=== PATIENT | female | born 1945 | race American Indian/Alaskan Native ===

== ENCOUNTER 2017-06-16 10:32 | Inpatient (IN) | payer MEDICARE, OTHER ==
--- NOTE | 2017-06-16 11:40 | ED PDOC ---
Arrival/HPI - General Chief Complaint: Dizziness/Lightheaded Time Seen by Provider: 06/16/17 11:04 Historian: Patient - History of Present Illness Narrative History of Present Illness (Text): 06/16/17 11:37 Ivy Holland is a 72 year old female, whose past medical history includes Hypertension, ESRD on dialysis, presents to the Emergency department complaining of dizziness, lightheadedness and difficulty speaking since she woke up at 6:30am today. Patient also informs feeling unsteady on her feet while walking, with right sided headache. She states she was advised to come to the ER by her physician prior to arrival, she came by car instead of taking ambulance. Time/Duration: 1-3 hours Symptom Onset: Gradual Symptom Course: Unchanged Activities at Onset: Light Context: Home Past Medical History - Provider Review Nursing Documentation Reviewed: Yes - Infectious Disease Hx of Infectious Diseases: None - Reproductive Menopause: Yes - Cardiac Hx Hypertension: Yes - Neurological Hx Dizziness: Yes Hx Transient Ischemic Attacks (TIA): Yes Hx Vertigo: Yes - Renal Type of Dialysis Access: udoiol right chest Date of Last Dialysis Treatment: 06/14/17 Hx Renal Failure: Yes - Endocrine/Metabolic Hx Diabetes Mellitus Type 2: Yes Hx Hypothyroidism: Yes - Hematological/Oncological Hx Anemia: Yes Hx Blood Transfusions: Yes Hx Blood Transfusion Reaction: No - Psychiatric Hx Substance Use: No - Surgical History Hx Hysterectomy: Yes Other/Comment: cyst removal right breast benign - Anesthesia Hx Anesthesia: Yes Hx Anesthesia Reactions: No Hx Malignant Hyperthermia: No Family/Social History - Physician Review Nursing Documentation Reviewed: Yes Family/Social History: Unknown Family HX Smoking Status: Never Smoked Hx Alcohol Use: No Hx Substance Use: No Allergies/Home Meds Allergies/Adverse Reactions: Allergies Penicillins Allergy (Verified 06/16/17 11:13) SHORTNESS OF BREATH Home Medications: Home Meds Medication Instructions Recorded Confirmed Unobtainable 06/16/17 06/16/17 Review of Systems - Review of Systems Constitutional: Fatigue. absent: Fevers Eyes: absent: Vision Changes, Photophobia ENT: absent: Hearing Changes, Sore Throat Respiratory: absent: SOB Cardiovascular: absent: Chest Pain, Palpitations, Edema, AMBROSE Gastrointestinal: absent: Abdominal Pain, Nausea, Vomiting Genitourinary Female: absent: Dysuria, Frequency Musculoskeletal: absent: Back Pain Skin: absent: Rash Neurological: Headache, Dizziness, Gait Changes, Speech Changes, Disequilibrium. absent: Focal Weakness, Seizure Endocrine: absent: Polyuria Hemo/Lymphatic: absent: Easy Bleeding Psychiatric: absent: Depression Physical Exam Vital Signs Reviewed: Yes Vital Signs Temp Pulse Resp BP Pulse Ox 06/16/17 14:04 79 18 165/80 H 100 06/16/17 11:12 83 06/16/17 11:03 98.0 F 16 178/85 H 98 Temperature: Afebrile Blood Pressure: Hypertensive Appearance: Positive for: Uncomfortable Pain Distress: Mild Mental Status: Positive for: Alert and Oriented X 3 - Systems Exam Head: Present: Atraumatic Pupils: Present: PERRL Mouth: Present: Moist Mucous Membranes Pharnyx: No: ERYTHEMA Nose (Internal): Present: Normal Inspection Neck: Present: Normal Range of Motion. No: MIDLINE TENDERNESS Respiratory/Chest: Present: Clear to Auscultation. No: Respiratory Distress Cardiovascular: Present: Regular Rate and Rhythm, Murmurs Abdomen: No: Tenderness, Distention Back: No: CVA Tenderness Upper Extremity: No: Cyanosis, Edema Lower Extremity: No: Edema Neurological: Present: Other (expressive aphasia). No: Speech Normal (slurred speech), Gait Normal Skin: Present: Warm Psychiatric: Present: Alert, Normal Concentration Medical Decision Making ED Course and Treatment: 06/16/17 12:15 Patient is a 72 yo female who reportedly saw her physician prior to arrival and was advised to come to the ER for "high blood pressure". On my history, patient states that she "woke up at 630 am and I was feeling dizzy" and states that she had difficulty walking as well as some difficulty speaking. Patient states she has had these symptoms all throughout the morning. She also reports to me right sided headache "on and off" for several months, worse today. states to me that she "has difficulty speaking from time to time" but that is "goes away on its own". On my exam she is dysarthric, no focal motor strength weakness noted. SHE IS NOT A TPA CANDIDATE SYMPTOMS FOR OVER 5 hours and patient WOKE UP WITH SYMPTOMS. CT head ordered and patient's symptoms monitored. 06/16/17 12:30 CXR IMPRESSION: Prominence of the pulmonary vasculature may be secondary to AP technique and/or pulmonary vascular congestion. No focal consolidation or pleural effusion. 06/16/17 12:40 Patient upon return from CT has persistent dysarthria. She is awake and alert. CT head unremarkable. Plan to admit for serial neuro exams, neuro consultation. Discussed with Dr. Thompson, covering for PMD, will consult renal as well. Case discussed with Dr. Aceves, renal consult. Case discussed with Dr. Ghassan Todd, who will be neurology consultation for patient. - Lab Interpretations Lab Results: 06/16/17 12:18 06/16/17 12:18 Lab Results 06/16/17 12:18: Phosphorus 5.2 H, Magnesium 2.2 06/16/17 12:18: Sodium 143, Potassium 4.6, Chloride 106, Carbon Dioxide 23, Anion Gap 19, BUN 46 H, Creatinine 7.8 H*, Est GFR ( Amer) 6, Est GFR ( Non-Af Amer) 5, Random Glucose 90, Calcium 9.7, Total Bilirubin 0.6, AST 28, ALT 34, Alkaline Phosphatase 115, Troponin I < 0.01, Total Protein 8.2, Albumin 4.2, Globulin 4.0, Albumin/Globulin Ratio 1.1, Triglycerides 137, Cholesterol 158, LDL Cholesterol Direct 60, HDL Cholesterol 57 06/16/17 12:18: WBC 9.6, RBC 3.90, Hgb 12.6, Hct 36.7, MCV 94.1, MCH 32.3, MCHC 34.3, RDW 15.7 H, Plt Count 178, MPV 9.8, Gran % 48.5 L, Lymph % (Auto) 41.3 H, Pendleton % (Auto) 8.8 H, Eos % (Auto) 1.0 L, Baso % (Auto) 0.4, Gran # 4.66, Lymph # 4.0 H, Pendleton # 0.9 H, Eos # 0.1, Baso # 0.04 06/16/17 12:00: Hemoglobin A1c 5.5 06/16/17 11:40: POC Glucose (mg/dL) 88 - RAD Interpretation Radiology Orders: 06/16/17 11:37 CHEST PORTABLE [RAD] Stat 06/16/17 11:38 HEAD W/O CONTRAST [CT] Stat - EKG Interpretation EKG Interpretation (Text): 06/16/17 12:19 EKG at 12:04 normal sinus rhythm rate of 82 with nonspecific t wave abnormality Interpreted by ED Physician: Yes Type: 12 lead EKG - Medication Orders Current Medication Orders: Amlodipine Besylate (Norvasc) 10 mg PO DAILY [facility] Last Admin: 06/17/17 09:41 Dose: 10 mg MAR Blood Pressure Document 06/17/17 09:41 RDS (Rec: 06/17/17 09:42 RDS [id number]) Blood Pressure Blood Pressure (100/60-150/90) 136/68 Aspirin (Ecotrin) 81 mg PO DAILY [facility] Last Admin: 06/17/17 09:41 Dose: 81 mg Aspirin (Ecotrin) 325 mg PO DAILY [facility] Discontinued Medications Aspirin (Aspirin Chewable) 81 mg PO STAT STA Stop: 06/16/17 12:31 Last Admin: 06/16/17 12:48 Dose: 81 mg Heparin Sodium (Porcine) (Heparin) 1,900 units ICA ONCE ONE Stop: 06/16/17 18:45 Last Admin: 06/16/17 18:59 Dose: 1,900 units Heparin Sodium (Porcine) (Heparin) 2,100 units ICV ONCE ONE Stop: 06/16/17 18:46 Last Admin: 06/16/17 18:59 Dose: 2,100 units Meclizine HCl (Antivert) 25 mg PO ONCE ONE Stop: 06/16/17 12:31 Last Admin: 06/16/17 12:47 Dose: 25 mg NIHSS Scale (Irving) Time Performed: 11:40 - How Severe is the Stoke Baseline Level of Consciousness: 0=Alert LOC to Questions: 0=Both comments correct LOC to commands: 0=Obeys both correctly Best Gaze: 0=Normal Visual: 0=No visual loss Facial: 0=Normal Motor Arm - Left: 0=No drift Motor Arm - Right: 0=No drift Motor Leg - Left: 0=No drift Motor Leg - Right: 0=No drift Limb Ataxia: 1=Present Upper or Lower Sensory: 0=Normal Best Language: 1=Mild to moderate aphasia Dysarthia: 1=Mild to moderate slurring Extinction & Inattention (Neglect): 0=Normal, no object Score: 3 Risk Level: Minor Stroke Risk rTPA Inclusion/Exclusion - Refusal of Treatment Patient Refused Treatment: Yes - Inclusion Criteria for Altepase Time of Onset is Well Established to be Less Than 270 Minute Before Treatment Would Begin: No - Scribe Statement The provider has reviewed the documentation as recorded by the Scribe Usama Magaña. All medical record entries made by the Scribe were at my direction and personally dictated by me. I have reviewed the chart and agree that the record accurately reflects my personal performance of the history, physical exam, medical decision making, and the department course for this patient. I have also personally directed, reviewed, and agree with the discharge instructions and disposition. Disposition/Present on Arrival - Present on Arrival Any Indicators Present on Arrival: No History of DVT/PE: No History of Uncontrolled Diabetes: No Urinary Catheter: No History of Decub. Ulcer: No History Surgical Site Infection Following: None - Disposition Have Diagnosis and Disposition been Completed?: Yes Diagnosis: Dysarthria, Dizziness, CVA (cerebral vascular accident), Renal failure Disposition: HOSPITALIZED Disposition Time: 12:41 Patient Plan: Admission, Telemetry Patient Problems: Current Active Problems Problem Status Onset CVA (cerebral vascular accident) Acute Dizziness Acute Dysarthria Acute Renal failure Acute Condition: SERIOUS
--- NOTE | 2017-06-16 11:59 | RAD ---
HISTORY: cva COMPARISON: No prior. FINDINGS: LUNGS: Prominence of the pulmonary vasculature may be secondary to AP technique and/or pulmonary vascular congestion. PLEURA: No significant pleural effusion identified, no pneumothorax apparent. CARDIOVASCULAR: Atherosclerotic aortic calcifications. Cardiomediastinal silhouette and normal limits. OSSEOUS STRUCTURES: Degenerative changes. VISUALIZED UPPER ABDOMEN: Right internal jugular access tunneled hemodialysis catheter with tip at the cavoatrial junction. OTHER FINDINGS: None. IMPRESSION: Prominence of the pulmonary vasculature may be secondary to AP technique and/or pulmonary vascular congestion. No focal consolidation or pleural effusion.
--- NOTE | 2017-06-16 12:17 | CT ---
PROCEDURE: CT HEAD WITHOUT CONTRAST. HISTORY: slurred speech, dizziness COMPARISON: None available. TECHNIQUE: Axial computed tomography images were obtained through the head/brain without intravenous contrast. Radiation dose: Total exam DLP = 857.6 mGy-cm. This CT exam was performed using one or more of the following dose reduction techniques: Automated exposure control, adjustment of the mA and/or kV according to patient size, and/or use of iterative reconstruction technique. FINDINGS: HEMORRHAGE: No intracranial hemorrhage. BRAIN: No mass effect or edema. Chronic microvascular ischemic changes in the periventricular white matter. VENTRICLES: Unremarkable. No hydrocephalus. CALVARIUM: Unremarkable. PARANASAL SINUSES: Unremarkable as visualized. No significant inflammatory changes. MASTOID AIR CELLS: Unremarkable as visualized. No inflammatory changes. OTHER FINDINGS: Intracranial arterial calcifications. IMPRESSION: No acute intracranial pathology.
[2017-06-16 12:25] LABS: BASO # 0.04 K/mm3 (0.0-2.0); BASO % 0.4 % (0.0-3.0); EOS # 0.1 (0.0-0.7); GRAN # 4.66 (1.4-6.5); GRAN % 48.5 % (50.0-68.0); HEMATOCRIT 36.7 % (36.0-48.0); LYMPH % 41.3 % (22.0-35.0); MEAN CELL VOLUME 94.1 fl (80.0-105.0); MEAN CORPUSCULAR HEMOGLOBIN 32.3 pg (25.0-35.0); MEAN CORPUSCULAR HGB CONC 34.3 g/dl (31.0-37.0); MEAN PLATELET VOLUME 9.8 fl (7.0-11.0); MONO # 0.9 (0.1-0.6); MONO % 8.8 % (1.0-6.0); RED CELL DISTRIBUTION WIDTH 15.7 % (11.5-14.5); WHITE BLOOD COUNT 9.6 10^3/ul (4.5-11.0)
[2017-06-16 12:35] LABS: ALB/GLOB RATIO 1.1 (1.1-1.8); ALKALINE PHOSPHATASE 115 U/L (38-126); ALT/SGPT 34 U/L (7-56); AST/SGOT 28 U/L (14-36); BILIRUBIN,TOTAL 0.6 mg/dL (0.2-1.3); BLOOD UREA NITROGEN 46 mg/dL (7-21); CALCIUM 9.7 mg/dL (8.4-10.5); CARBON DIOXIDE 23 mmol/L (21-33); CHLORIDE 106 mmol/L (98-107); CHOLESTEROL 158 mg/dL (130-200); GFR AFRICAN-AMERICAN 6; GLUCOSE,RANDOM 90 mg/dL (70-110); POTASSIUM 4.6 mmol/L (3.6-5.0); SODIUM 143 mmol/L (132-148); TOTAL PROTEIN 8.2 g/dL (5.8-8.3)
[2017-06-16 12:49] LABS: TROPONIN I < 0.01 ng/mL
[2017-06-16 13:51] LABS: INR 1.12 (0.93-1.08); PARTIAL THROMBOPLASTIN TIME 33.7 Seconds (25.1-36.5)
[2017-06-16 16:56] LABS: MAGNESIUM 2.2 mg/dL (1.7-2.2); PHOSPHOROUS 5.2 mg/dL (2.5-4.5)
[2017-06-16 17:35] VITALS: BMI 32.5
--- NOTE | 2017-06-17 00:17 | CON ---
DATE: 06/16/2017 REASON FOR CONSULTATION: Severe hypertension, dysarthria, need for dialysis. HISTORY OF PRESENT ILLNESS: This 72-year lady previously unknown to me, was sent to the Emergency Room by her Import Coordinator because of severe hypertension, difficulty forming words, dizziness, headache. In the Emergency Room, she was found to have a blood pressure of 178/85. Her CT scan showed no intracranial pathology. Currently, she is lying in bed. She is still having some difficulty formulating her sentences. She is reporting some headache and dizziness. On questioning, she reports that she has a history of hypertension, NIDDM, end-stage renal disease. She has been on dialysis for about a year and half. She goes for dialysis on Monday, Monday and Monday at [facility]. Her laboratory data shows BUN of 46 and creatinine of 7.8. PAST MEDICAL AND SURGICAL HISTORY: NIDDM, hypertension, CAD, PTCA and stent, ESRD,. FAMILY HISTORY: Noncontributory. SOCIAL HISTORY: No smoking, no alcohol use, no IV drug abuse. ALLERGIES: PENICILLIN. MEDICATIONS: List unavailable at this time. REVIEW OF SYSTEMS: GENERAL: The patient complains of lightheadedness, dizziness, difficulty talking. She denies any focal weakness. LUNGS: No chest pain, no palpitation. ABDOMEN: No abdominal pain, no nausea no vomiting. All systems are reviewed, pertinent positives as mentioned in history of presenting illness. PHYSICAL EXAMINATION GENERAL: Younger than stated age appearing lady lying in bed. VITAL SIGNS: Blood pressure 165/80, heart rate 80, respiratory rate 18, temperature 98. HEENT: Normocephalic, atraumatic. NECK: Supple, no JVD. Lungs: Bilateral equal air entry, no rales. CARDIAC: S1 and S2, regular rate and rhythm, no murmur, no rub. ABDOMEN: Obese, distended, soft, nontender, bowel sounds present. EXTREMITIES: No lower extremity edema. INTAKE AND OUTPUT: Not charted. LABORATORY DATA: WBC 9.6, hemoglobin 12.6, hematocrit 37 and platelets 178. Sodium 143, potassium 4.6, chloride 106, CO2 23, BUN 46, creatinine 7.8, glucose 90, calcium 9.7, AST 28, ALT 34, albumin 4.2, globulin 4.0. ASSESSMENT AND PLAN: 1. Severe hypertension with altered speech. 2. [id number] diabetes mellitus. 3. Hypertension. 4. End-stage renal disease. PLAN: 1. Dialysis today, today is her regular day. The patient dialyzes for three and a half hours. 2. Obtain outpatient med list. 3. Neurology evaluation. 4. Amlodipine 5 mg p.o. start now. 5. Monitor fingersticks. 6. Further recommendations to follow. Thank you for the courtesy of this consultation. Radha Aceves MD
--- NOTE | 2017-06-17 01:23 | HP ---
HISTORY OF PRESENT ILLNESS: The patient is a 72-year-old black female, she was seen earlier by carton lettering machine operator. She has been complaining of feeling weak, dizzy, lightheaded, and also was having difficulty saying words. She states she is woke up around 6:30 this morning and felt lightheaded and unstable on walking. No chest pain. No shortness of breath. Did have some headache, so she was brought to Emergency Room. PAST MEDICAL HISTORY: Significant for: 1. Hypertension. 2. End-stage renal disease, on hemodialysis. ALLERGIES: SHE IS ALLERGIC TO PENICILLIN. MEDICATIONS AT HOME: She cannot recall any medication what she takes at home. REVIEW OF SYSTEMS: Significant for slight slurring of speech. She was given swallowing evaluation that she passed in the ER. PHYSICAL EXAMINATION: GENERAL: She is awake, alert, oriented, and communicative. VITAL SIGNS: She is afebrile, pulse 80, respirations 16, and blood pressure 183/86. LUNGS: Bilateral good airflow. No rhonchi or crackle. HEART: S1 and S2 audible. ABDOMEN: Soft. Nontender. No rebound. No guarding. NEUROLOGICAL: The patient is awake, alert, oriented, and communicative. LABORATORY DATA: WBC is 9.6, hemoglobin is 12.6, hematocrit is 36.7, and platelets are 178. PT is and INR 1.12. Chemistries; sodium 143, potassium 4.6, chloride 106, CO2 of 23, BUN 46, and creatinine 7.8. Blood sugar of 76. CT scan of the head is done that is unremarkable. X-ray of the chest prominence of the pulmonary vasculature secondary to . ASSESSMENT: 1. Uncontrolled hypertension. 2. End-stage renal disease, on hemodialysis. 3. Dysarthria. PLAN: We will order for carotid Doppler and start her on aspirin. She will get urgent dialysis. We will monitor her blood pressure closely. Neuro and Nephrology consult has been requested. Physical therapy has been requested. Luiz Thompson MD
--- NOTE | 2017-06-17 03:39 | CON ---
DATE: HISTORY OF PRESENT ILLNESS: This is a 72-year-old black female with past medical history of hypertension and end-stage renal disease on dialysis. The patient came to the hospital with dizziness, lightheadedness, and difficulty speaking when she woke up in the morning and also felt unsteady on her feet. The patient had dialysis today and went for carotid Doppler, and CAT scan of the head was done in the ER, which is reported negative, no intracranial pathology was seen. PHYSICAL EXAMINATION: HEENT: Normocephalic, atraumatic. NECK: Supple. NEUROLOGIC: Awake, alert, and oriented x3. No aphasia. Cranial nerves II through XII tested. Pupils reactive. EOM intact. Visual zhang full. No facial asymmetry. Tongue midline. Motor examination: Moves all the extremities equally. Tone normal. Deep tendon reflexes 1+. Both plantars are downgoing. Sensory appears intact. Cerebellar, gait deferred. IMPRESSION AND PLAN: Possible transient ischemic attack with a blood pressure of . Blood pressure was then controlled and this patient went for dialysis. CAT scan of the head did not show any acute infract or a bleed and carotid Doppler is being done. Continue present management. We will follow up. I will increase the aspirin to 325 mg p.o. daily. Jn Todd MD
[2017-06-17 07:11] LABS: CHOLESTEROL 161 mg/dL (130-200)
[2017-06-17 07:27] LABS: FREE T4 0.77 ng/dL (0.78-2.19)
[2017-06-17 07:41] LABS: THYROID STIMULATING HORMONE 4.17 mIU/mL (0.46-4.68)
--- NOTE | 2017-06-17 09:18 | CARD ---
APPROVED REPORT EKG Measurement Heart [id number] <Conclusion> Normal sinus rhythm Nonspecific T wave abnormality Prolonged QTc
--- NOTE | 2017-06-17 12:11 | PN ---
DATE: SUBJECTIVE: The patient is currently seen on telemetry. She is comfortable. She is lying supine in bed. She has no difficulty speaking, and no focal deficits. She had a negative head CT scan. Carotid Dopplers are pending. The patient would like to go home. MEDICATIONS: Medication list reviewed. The patient is currently on Norvasc and aspirin. Her home medications were unobtainable, and the patient does not remember what they are. OBJECTIVE: INTAKE/OUTPUT: Intake 360, output hemodialysis yesterday. VITAL SIGNS: Blood pressure has significantly improved down to 136/68, heart rate 87, temperature 97.9, respiratory rate 19 with a pulse ox of 96%. HEENT: Shows her be normocephalic, atraumatic. Conjunctivae are pink. Sclerae are nonicteric. NECK: Supple. No neck vein distention. CHEST: Clear to auscultation and percussion. No rales or rhonchi or wheezing. CARDIOVASCULAR: Shows a regular rate and rhythm without murmurs, rubs, or gallops. ABDOMEN: Soft. Bowel sounds normal. No rebound or guarding or masses. EXTREMITIES: Show no lower extremity cyanosis, clubbing, or edema. The patient has a right chest wall PermCath and a maturing AV fistula of her left upper extremity. She had dialysis yesterday through her PermCath. LABORATORY DATA AND IMAGING: Head CT scan was negative. Carotid Dopplers are pending. Admitting chest x-ray showed prominence of pulmonary vasculature, no focal consolidation or pleural effusion. That x-ray was done prior to dialysis yesterday. Labs: CBC; white blood cell count 9.6, hemoglobin 12.2 with a platelet count of 178,000. Chemistry show normal electrolytes. BUN 46 with a creatinine of 7.8. Calcium 9.7, phosphorus 5.2, and magnesium level of 2.2. Free T4 level was low. TSH level was normal. ASSESSMENT: 1. Status post transient ischemic attack, likely. Possibly in the setting of uncontrolled hypertension. The patient presented with dysarthria. This has resolved. The patient had been seen by Neurology. There appeared to be no findings on CT scan, and carotid Doppler study is pending. 2. History of end-stage renal disease. The patient is a Monday, Monday, Monday dialysis patient at [facility]. She will likely receive dialysis tomorrow because of the holiday on Monday. This can be done in the outpatient center at [facility] if the patient is discharged home. 3. History of hypertension. Blood pressure is controlled on calcium channel maura therapy. 4. History of noninsulin-dependent diabetes mellitus. This is likely the course of her kidney disease according to the patient. 5. History of arteriosclerotic heart disease, percutaneous transluminal coronary angioplasty and stent, currently stable. 6. History of secondary hyperparathyroidism. The patient is uncertain whether or not she is on binder therapy. She will check her outpatient medication list when she gets home and discuss this with her cardiac rehabilitation program director up at [facility]. She should be on binder therapy, and phosphorus level was 5.2. PLAN: 1. From my standpoint, the patient may be discharged home. 2. The patient to be seen by both Medicine and Neurology today. If everybody agrees, the patient may be discharged to home. Her next hemodialysis treatment will be in the outpatient center at [facility] tomorrow in place of Monday because of the holiday. 3. The patient should be discharged to home on calcium channel maura therapy. 4. The patient will discuss with her outpatient cardiac rehabilitation program director the possibility of starting binder therapy for her secondary hyperparathyroidism. Samm Miller MD
--- NOTE | 2017-06-17 15:25 | CP.PCM.PCO ---
Physician Communication Note - Physician Communication Note Physician Communication Note: stable from neuro standpoint
--- NOTE | 2017-06-17 23:43 | CON ---
DATE: HISTORY OF PRESENT ILLNESS: This is a 72-year-old female with past medical history of end-stage renal disease on dialysis and came to the hospital with dizziness and lightheadedness, and felt unsteady on the feet. CAT scan of the head was done, which was reported negative. No intracranial pathology. PHYSICAL EXAMINATION: NEUROLOGIC: Awake, alert and oriented. There is no aphasia. Cranial nerves II through XII tested. Pupils reactive. Spontaneous movements of the extremities noted. Deep tendon reflexes 1+. Both plantars are downgoing. Sensory appears intact. Cerebellar, gait deferred. IMPRESSION: Transient ischemic attack and CAT scan of the head does not show any infarct or bleed. Carotid Doppler was not . We will continue present management. Aspirin 325 p.o. daily. Jn Todd MD
[2017-06-18] MEDS: Aspirin 325 mg EC Tablets PO SCH ×2 (09:20→09:25)
[2017-06-18 09:26] VITALS: O2SAT 98
--- NOTE | 2017-06-18 09:38 | DS ---
HISTORY OF PRESENT ILLNESS: The patient is a 72-year-old seen and examined, lying in bed, seemed to be comfortable, answering appropriately. No dysarthria or slurry speech noted. No nausea or vomiting. Eating and tolerating. Walks with a cane. PHYSICAL EXAMINATION: VITAL SIGNS: She is afebrile, pulse is 93, respirations are 20, and blood pressure is 142/74. LUNGS: Bilateral fair airflow. No rhonchi or crackles. HEART: S1 and S2, audible. ABDOMEN: Soft, obese, and nontender. No rebound and no guarding. NEUROLOGIC: She is awake, alert, oriented, and communicative. LABORATORY DATA: Her blood sugar is 106. She has a carotid Doppler done that is pending. CT scan of the head is negative. ASSESSMENT AND PLAN: 1. Questionable dysarthria or slurred speech. 2. Controlled hypertension. 3. Hyperlipidemia. 4. End-stage renal disease, on hemodialysis. PLAN: The patient is currently on aspirin 81 daily. She is on amlodipine 10 mg daily and meclizine as needed. The patient will be discharged today. She will follow up with her PMD Dr. Jha next week. Luiz Thompson MD
[2017-06-18 11:54] VITALS: BP 132/74; PULSE 65; RESP 18; TEMP 98
--- NOTE | 2017-06-18 21:41 | US ---
PROCEDURE: Bilateral carotid artery duplex ultrasound HISTORY: Carotid stenosis PHYSICIAN(S): Rodrigo Sampson MD. TECHNIQUE: Duplex sonography and color-flow Doppler were used to evaluate the carotid bifurcations and limited segments of the vertebral arteries bilaterally. FINDINGS: There is mild to moderate smooth heterogeneous plaque noted at the carotid bifurcations bilaterally. The peak systolic velocity in the proximal right internal carotid artery is 112 cm/sec. This corresponds to a 40-59 percent proximal right ICA stenosis. Normal systolic velocities are noted in the proximal right external carotid artery. There is antegrade flow in the right vertebral artery. The peak systolic velocity in the proximal left internal carotid artery is 122 cm/sec. This corresponds to a 40-59 percent proximal left ICA stenosis. Mildly elevated systolic velocities are noted in the proximal left external carotid artery. There is antegrade flow in the left vertebral artery. IMPRESSION: 1. Bilateral 40-59 percent proximal ICA stenoses. 2. Antegrade flow in both vertebral arteries.
--- NOTE | 2017-06-19 02:28 | DS ---
HOSPITAL COURSE: The patient is 72-year-old, seen and examined, sitting in chair, seemed to be comfortable, wants to be discharged. The patient has dialysis scheduled for tomorrow in [facility]. Denies any nausea or vomiting. Does have unstable gait to walk. She requires a walker after she was evaluated by physical therapist. No complaint of headache. No nausea. No dizziness. No palpitation. PHYSICAL EXAMINATION: VITAL SIGNS: She is afebrile, pulse 65, respirations 18, and blood pressure 132/74. LUNGS: Bilateral fair airflow. No rhonchi or crackle. HEART: S1 and S2 audible. ABDOMEN: Soft and nontender. No rebound. No guarding. NEUROLOGIC: She is awake, alert, oriented, able to communicate, and ambulates with a walker. LABORATORY DATA: Blood sugar is 158. Carotid Doppler is pending. CT scan is unremarkable. ASSESSMENT: 1. Status post uncontrolled hypertension. 2. Hyperlipidemia. 3. End-stage renal disease, on hemodialysis. 4. Deconditioning, difficulty walking. PLAN: The patient is being transferred to [facility] for rehab. She will be monitored. Her blood pressure will be monitored there also. Luiz Thompson MD
== END 2017-06-18 12:44 | disposition home or self-care (01) | DRG 682 ==
LOC: ED 10:32 → MERGE 12:45 → ERH 12:45 → 2RSO 14:41
PROVIDERS: ADMIT Internal Medicine; ATTEND Internal Medicine
PROC: 5A1D70Z Performance of Urinary Filtration, Intermittent, Less than 6 Hours Per Day (ICD-10-PCS; principal; 2017-06-16)
DX: I12.0 Hypertensive chronic kidney disease with stage 5 chronic kidney disease or end stage renal disease (principal); N18.6 End stage renal disease; R47.1 Dysarthria and anarthria; E11.22 Type 2 diabetes mellitus with diabetic chronic kidney disease; N25.81 Secondary hyperparathyroidism of renal origin; Z99.2 Dependence on renal dialysis; E78.5 Hyperlipidemia, unspecified; R26.2 Difficulty in walking, not elsewhere classified; I25.10 Atherosclerotic heart disease of native coronary artery without angina pectoris; Z79.84 Long term (current) use of oral hypoglycemic drugs; Z86.73 Personal history of transient ischemic attack (TIA), and cerebral infarction without residual deficits; Z95.5 Presence of coronary angioplasty implant and graft; Z90.710 Acquired absence of both cervix and uterus; Z88.0 Allergy status to penicillin